=== PATIENT | female | born 2000 ===

== ENCOUNTER 2021-11-06 04:59 | Inpatient (IN) | payer SELFPAY ==
[2021-11-06] MEDS ORDERED: LACTATED RINGERS 500 ML IV ONE (05:45)
[2021-11-06 07:04] LABS: Basophils % (Auto) 0.3 % (0.0-1.8); Eosinophils # (Auto) 0.5 K/mm3 (0.0-0.4); Eosinophils % (Auto) 3.8 % (0.0-4.3); Hematocrit 34.3 % (30.3-42.9); Hemoglobin 11.4 gm/dl (10.1-14.3); Lymphocytes # (Auto) 2.4 K/mm3 (1.2-5.4); Lymphocytes % (Auto) 18.3 % (13.4-35.0); Mean Corpuscular HGB Conc 33 % (30-34); Mean Corpuscular Volume 89 fl (79-97); Monocytes % (Auto) 7.7 % (0.0-7.3); Platelet Count 230 K/mm3 (140-440); Red Blood Count 3.88 M/mm3 (3.65-5.03); Red Cell Distribution Width 13.6 % (13.2-15.2)
[2021-11-06 07:18] LABS: INR 0.96 (0.87-1.13)
[2021-11-06 07:19] LABS: Partial Thromboplastin Time 30.1 Sec. (24.2-36.6)
[2021-11-06 07:30] LABS: Hepatitis C Virus Antibody Non-Reactive (NonReactive)
[2021-11-06] MEDS ORDERED: LACTATED RINGERS 1,000 ML IV SCH (07:30)
[2021-11-06] MEDS ORDERED: OXYTOCIN DRIP 30 UNITS/500 ML BAG IV SCH ×2 (08:00→13:31)
[2021-11-06] MEDS ORDERED: BICITRA ORAL LIQD 30ML PO SCH (08:00)
[2021-11-06] MEDS ORDERED: METOCLOPRAMIDE 10 MG/2 ML INJ IV SCH (08:00)
[2021-11-06] MEDS ORDERED: FAMOTIDINE 20 MG/2 ML INJ IV SCH (08:00)
[2021-11-06] MEDS ORDERED: ceFAZolin/Water 2 GM/20 ML 2 GM/20 ML SYRINGE IV NR (08:00)
--- NOTE | 2021-11-06 08:04 | History and Physical Report ---
History of Present Illness Date of examination: 11/06/21 Chief complaint: vag bleeding History of present illness: at 24wks by pt report c/w U/S done today at [facility]. I was called by the nurs e stating pt with vag bleed. No records available. I requested emergent U/S for dates, placenta location and walk in labs and I arrived when u/s tech was walking out of the room. Pt gives history of being asleep and awaken by vag bleed at 4am today. Pt also admits after asking the FOB present in the room, that they had sex 10pm last night. Pt states no bleeding at that time. Pt admits to movement, denies headache, or feeling ctx. Past History Past Medical History: other (morbid obesity) Past Surgical History: no surgical history Social history: no significant social history - Obstetrical History Expected Date of Delivery: 02/26/22 Actual Gestation: 24 Week(s) 0 Day(s) : 1 Number of Living Children: 0 Medications and Allergies Allergies Allergy/AdvReac Type Severity Reaction Status Date / Time No Known Allergies Allergy Unverified 11/06/21 05:32 Active Meds: Active Medications Citric Acid/Sodium Citrate (Bicitra Oral Liqd 30ml) 30 ml PO PREOP ANIBAL Stop: 11/06/21 15:00 Famotidine (Famotidine 20 Mg/2 Ml Inj) 20 mg IV PREOP ANIBAL Stop: 11/06/21 15:00 Lactated Ringer's (Lactated Ringers) 1,000 mls @ 2,250 mls/hr IV PREOP ANIBAL Stop: 11/07/21 07:57 Oxytocin/Sodium Chloride (Pitocin/Ns 30 Unit/500ml) 30 units in 500 mls @ 0 mls/hr IV TITR ANIBAL; Protocol Cefazolin Sodium (Ancef/Sterile Water 2 Gm/20 Ml) 2 gm in 20 mls @ 80 mls/hr IV PREOP NR; Protocol Stop: 11/06/21 15:00 Metoclopramide HCl (Metoclopramide 10 Mg/2 Ml Inj) 10 mg IV PREOP ANIBAL Stop: 11/06/21 15:00 Review of Systems All systems: negative (vag bleed) - Vital Signs Vital signs: Vital Signs Pulse Ox 83 L 11/06/21 05:16 Temp Pulse Resp BP Pulse Ox 98.1 F 104 H 143/67 100 11/06/21 05:33 11/06/21 07:31 11/06/21 07:31 11/06/21 07:12 - Physical Exam Breasts: Positive: deferred Cardiovascular: Regular rate, Other (tacchycardia) Lungs: Positive: Normal air movement Genitourinary (Female): Positive: normal external genitalia (with dark moderate size clot and dark red blood persistent flow) Vulva: both: normal Vagina: Positive: discharge (bloody) Uterus: Positive: enlarged (non-tender, obese) - Obstetrical FHR: category 3 Uterine Contraction Monitor Mode: External Cervical Dilatation: 3 (large clot with no parts felt in the vagina) Uterine Contraction Pattern: Absent Results Result Diagrams: 11/06/21 06:20 Abnormal lab results 11/06/21 11/06/21 Range/Units 06:20 06:20 WBC 13.2 H (4.5-11.0) K/mm3 Moffat % (Auto) 7.7 H (0.0-7.3) % Moffat # (Auto) 1.0 H (0.0-0.8) K/mm3 Eos # (Auto) 0.5 H (0.0-0.4) K/mm3 Seg Neutrophils # 9.2 H (1.8-7.7) K/mm3 D-Dimer 340.94 H (0-234) ng/mlDDU All other labs normal. Assessment and Plan with active vag bleed, breech on u/s here and dates consistent with wt>500g with non-reassuring FHR and no fluid on u/s 1. Admit to labor and delivery for emergent c/section delayed per charge nurse Zena Ramos the Nurse motorcycle tester made the call for another pt with BPP 2 to go to the OR now; I called the dry house operator, Ana Cristina, to get staff to open the other OR and she stated "Where do you want me to get the staff from?". I received no help from her and therefore I spoke with Dr. Guillory the anesthesiologist on duty who states she has 2 nurse anesthetists and able to run 2 rooms. I spoke with NICU team next who states she has only 1 respiratory therapist and unable to run 2 rooms. My request to go first to surgery was denied. 2. The pt was prepared and consents obtained waiting to proceed 3. I tried to obtain prenatals and staff from [facility], pt is not ours. When I asked the pt, she states she went to [facility] , and FOB showed the Clinic name at [facility] which is not our patient. I confirmed with Vince my boss that [facility] does not cover this clinic. Dr. Mcduffie called and he refused to accept the patient and Dr. Austin now wire communications engineer accepts care of this patient and charge nurse Freitas present for this entire conversation. Charge told me I had to call admissions to change the attending doctor for which I did. Plan of care will now be assumed by Dr. Austin from [facility] as walk in coverage. 4. Nurse Ivis asked to get forms for the new wire communications engineer doctor to sign for the procedure. Charge nurse Zena states the NICU is still not available to proceed for delivery of this baby at this time. FHR 160's present with recurrent variables category II at this time. 5. Pt notified of change of plans, shaved with greenfield cath in place ready for the OR. All questions encouraged and answered
[2021-11-06] MEDS ORDERED: SODIUM CHLORIDE 0.9% 500 ML 500 ML IV SCH (09:00)
--- NOTE | 2021-11-06 09:04 | Event Note ---
Date: 11/06/21 Patient care transferred to magazine writer as previous provider has noted patient does not belong to her practice. Previous crisis intervention specialist doctor notified after shift change. Will take patient and proceed with section.
[2021-11-06] MEDS ORDERED: BUPIVACAINE/PF (0.5%) 5 MG/1 ML 30 ML VIAL INFILTRATI ONE (09:22)
[2021-11-06] MEDS ORDERED: ONDANSETRON 4 MG/2 ML INJ ONE (09:22)
[2021-11-06] MEDS ORDERED: ACETAMINOPHEN 325 MG TAB PO PRN ×2 (09:29→09:41)
[2021-11-06] MEDS ORDERED: BUTORPHANOL 2 MG/1 ML INJ IV PRN ×3 (09:29→09:41)
--- NOTE | 2021-11-06 09:30 | Ultrasound Report ---
ULTRASOUND OBSTETRIC LIMITED INDICATION / CLINICAL INFORMATION. labor and bleeding Clinical Gestational Age (GA) in weeks, days: 24 weeks 0 days TECHNIQUE: Transabdominal. COMPARISON: None available. FINDINGS: There is a single intrauterine in breech position. HEART RATE (beats per minute): 138 AMNIOTIC FLUID INDEX (cm) = not calculated (normal = 7-24 cm) PRESENTATION: Cephalic. Biparietal Diameter = 5.67 cm = 23, 2 weeks, days Head Circumference = 21.54 cm = 23, 4 weeks, days Abdominal Circumference = 19.40 cm = 24, 1 weeks, days Femur Length = 4.22 cm = 23, 5 weeks, days Average Ultrasound Age (AUA) = 23, 5 weeks, days Heart Rate: 138 beats per minute. Estimated Weight in grams (if calculated): 639 g Estimated Weight Growth Percentile (if calculated): 36 percentile Position: breech. Cervix: Not measured Placenta: anterior and free of the os. Grade 0. Amniotic Fluid Volume: normal Amniotic Fluid Index (MYCHAL) in cm (if calculated): Not calculated. Maternal Adnexa: No significant abnormality. IMPRESSION: 1. Single intrauterine in breech position. 2. Estimated weight is 639 g. 3. Estimated ultrasound age of 23 weeks 5 days. Signer Name: Ahmet Astorga MD Signed: 11/06/2021 9:26 AM Workstation Name: [id number]
[2021-11-06] MEDS ORDERED: NalbUPHINE 10 MG/1 ML INJ IV PRN ×2 (09:41→11:55)
[2021-11-06] MEDS ORDERED: SODIUM CHLORIDE 0.9% IRR 1,500 ML BOTTLE IR ONE (09:55)
[2021-11-06] MEDS ORDERED: WATER FOR IRRIG STERILE 1,500 ML BOTTLE IR ONE (09:55)
[2021-11-06] MEDS ORDERED: fentaNYL 100 MCG/2 ML INJ IV PRN (10:00)
[2021-11-06] MEDS ORDERED: PHENYLEPHRINE/NS 1,000 MCG/10 ML SYRINGE (OR USE) IV ONE (10:08)
[2021-11-06] MEDS ORDERED: ePHEDrine SULFATE 50 MG/1 ML INJ ONE (10:08)
[2021-11-06] MEDS ORDERED: CARBOPROST TROMETHAMINE 250 MCG/1 ML INJ IM ONE (10:16)
[2021-11-06] MEDS ORDERED: METHYLERGONOVINE MALEATE 0.2 MG/ML VIAL IM ONE (10:17)
[2021-11-06] MEDS ORDERED: fentaNYL 100 MCG/2 ML INJ ONE (10:52)
--- NOTE | 2021-11-06 11:47 | Anesthesia Day of Surgery ---
Anesthesia Day of Surgery - Day of Surgery Patient Examined: Yes Patient H&P Reviewed: Yes Patient is NPO: Yes Beta Blockers: No Cardiac Clearance: No Pulmonary Clearance: No Gino's Test: N/A
--- NOTE | 2021-11-06 11:48 | Anesthesia Consultation ---
Anesthesia Consult and Med Hx Date of service: 11/06/21 - Airway Anesthetic Teeth Evaluation: Good ROM Head & Neck: Adequate Mental/Hyoid Distance: Adequate Mallampati Class: Class II Intubation Access Assessment: Probably Good - Pulmonary Exam CTA: Yes - Cardiac Exam Cardiac Exam: RRR - Pre-Operative Health Status ASA Pre-Surgery Classification: ASA2, Emergency Proposed Anesthetic Plan: Spinal Nerve Block: TAP - Pulmonary Hx Smoking: No Hx Asthma: No Hx Sleep Apnea: No - Cardiovascular System Hx Hypertension: No Hx Heart Attack/AMI: No Hx Angina: No - Central Nervous System Hx Seizures: No Hx Psychiatric Problems: No - Gastrointestinal Hx Gastroesophageal Reflux Disease: No - Endocrine Hx Renal Disease: No Hx Liver Disease: No Hx Insulin Dependent Diabetes: No Hx Non-Insulin Dependent Diabetes: No Hx Hypothyroidism: No Hx Hyperthyroidism: No - Hematic Hx Anemia: No Hx Sickle Cell Disease: No - Other Systems Hx Alcohol Use: No
--- NOTE | 2021-11-06 11:49 | Progress Note ---
Spinal Anesthesia Block - Spinal Anesthesia Block Start Time: :34 Stop Time: :38 Performed by:: ROSENDO LESTER Procedure: Spinal anesthesia block is being performed for [c/s]. H&P, labs have been reviewed. Patient's questions and concerns have been answered. Informed consent has been performed. Timeout has was performed. Patient in sitting position on side of bed. Sterile prep and drape was performed. 3 mL 1% lidocaine skin wheal at L [3]-L [4]. Needle introducer advanced. 24-gauge spinal needle advanced, [+] CSF [-] blood. [Marcaine 10mg and Precedex 5mcg] Spinal dose was given. All needles removed. Patient tolerated procedure well.
--- NOTE | 2021-11-06 11:50 | Operative Report ---
Operative Report Operative Report: Preoperative diagnosis: IUP @ 24 weeks, PPROM, nonreassuring heart tones, vaginal bleeding Postoperative diagnosis: same, s/p section Procedure: classical section Surgeon: Li Austin MD Anesthesia: Spinal Complications: none EBL: 600 ml IV Fluids: 1500 ml UOP: 750 ml, clear urine at the end of procedure Indications: nonreassuring heart tones, PPROM, vaginal bleeding Findings: "en caul" in amniotic sac with no fluid, placenta attached Amniotic fluid None Fallopian tubes normal in appearance bilaterally Ovaries normal in appearance bilaterally Procedure: The patient was taken to the operating room where spinal anesthesia was found to be adequate. 2 g Ancef was given prior to the procedure. She was then prepared and draped in the usual sterile fashion in the dorsal supine position with a leftward tilt. A Pfannenstiel skin incision was made with the scalpel and carried through to the underlying layer of fascia with the bovie. The fascia was incised in the midline and the incision extended laterally. The superior aspect of the fascial incision was then grasped with the Francis's clamps, elevated, and the underlying rectu s muscles dissected off bluntly and with sharp dissection using bovie. Attention was then turned to the inferior aspect of this incision which, in a similar fashion, was grasped, tented up with the Francis clamps, and the rectus was dissected off bluntly and with sharp dissection. The rectus muscles were then in the midline, and the peritoneum identified, and entered bluntly. The peritoneal incision was then extended superiorly and inferiorly with good visualization of the bladder. The bladder blade was then inserted. A midline vertical incision was carried from the mid uterine corpus to above the level of the lower uterine segment until membranes noted. The incision site was opened wide enough to deliver . Fetus deliver en caul in amniotic sac with placenta attached. Sac open and fetus removed and movement noted. The umbilical cord was clamped and cut. The was handed off to the waiting pediatricians.The uterus was exteriorized and cleared of all clots and debris. The uterine incision was repaired with 0 vicryl in three layers: an initial layer at the deep myometrial edge, a second continuos layer to reapproximate the myometrium and a third continuos suture to closes the serosa. Areas of oozing noted at the incision line so an additional running suture placed. Hemostasis noted. Surgicel applied over the hysterotomy. Uterus returned to the abdomen. The rectus muscle was reapproximated with 2-0 vicryl. The fascia was reapproximated with 0 vicryl in a running fashion. Subcutaneous layer reapproximated with interrupted sutures of 3-0 vicryl. The skin was closed with 4-0 monocryl subcuticular stitch and the incision sealed with Steri-strips.The patient tolerated the procedure well. Sponge, lap, needle counts correct X 2. The patient was taken to the recovery room in a stable condition.
--- NOTE | 2021-11-06 11:50 | Progress Note ---
Regional Anesthesia Block - Regional Anesthesia Block Start Time: 11:38 Stop Time: 11:45 Performed By:: ROSENDO LESTER Procedure: Patient consented for TAP block for post surgical pain management. Patient identified, monitors placed, and time out performed. Mid axillary TAP identified bilaterally via ultrasound. Skin prepped bilaterally with [chlorhexidine] and [20g stimuplex] needle advanced to the TAP. 30ml [Marcaine 0.25% with 25mcg Pre cedex and Decadron 5mg] injected under ultrasound guidance on the [left] side. 30ml [Marcaine 0.25% with 25mcg Precedex and Decadron 5mg] injected under ultrasound guidance on the [right] side. Negative aspiration every 5mL, Patient tolerated the procedure well. No apparent complications seen.
--- NOTE | 2021-11-06 11:51 | Event Note ---
Date: 11/06/21 Late Entry: At approximately 8:45 AM the selling underwriter was approached by Dr. Villa regarding patient. I was informed patient did not belong to [facility] and previous walk-in provider for November 05, Dr Mcduffie, was called after change of shift and would not be taking the patient. Agreed to assume care of patient in order for patient to receive care. After assuming care, I was then informed by Dr. Villa the patient was noted to have vaginal bleeding and nonreassuring heart tones. Also breech presentation with no fluid noted on U/S, 3 cm dilated with clot at the os. Upon reviewing the chart, it was determined patient had arrived at approximately 5:[address] Villa placed orders and ordered a section at 6:46 AM., but was told she could not proceed due to staffing shortage. I presented to the patients bedside at approximately 9:00 AM for evaluation patient heart tones noted to have a 150 baseline with minimal to moderate variability and variable decelerations noted to 120 with recovery, perineum currently dry with scant blood stains on bedding. Patient without pain. Plan of care reviewed with patient who inquired when her surgery would begin. Bird Keeper informed patient we should be starting case as soon as the team (OR and NICU) is ready. Patient voiced understanding and new procedure consent form signed after again reviewing risk and benefits of the procedure. Also discussed with patient premature delivery as well as knee for classical . Reviewed that this is a vertical incision and she should never labor or have a vaginal delivery in the future. Patient voiced understanding period to the nurses station and chart review recommenced around 9:15 AM until approximately 9:30 AM when patient will to are at this time concrete mixing truck driver provider Dr Mcduffie presented to discuss the case and inquire if his help was needed. Informed provider that I had assumed care of patient. I had presented to the OR where the spinal was complete and patient being prepped. Case reviewed with CYLINDER HONER during this time. I scrubbed in the case and time out completed at 9:59 AM with incision made at 10:00 AM. delivered at 10:14 AM following delivery of , NICU team took over care and resuscitation of the . See their documentation for additional details. Case completed at approximately 11:20 AM. Prior to exiting to the operating room, spoke with patient who was tearful and asked about condition of baby. Discuss NICU team currently attempting resuscitative efforts and they would inform her of progress. Later informed by the food technology teacher that was . Follow up with patient at bedside in the PACU at approximately 12:30 PM for assessment of bleeding. Abdomen soft and non distended. Blood pressure reviewed and appropriate patient noted pain but overall feeling OK. Inquired when she would be allowed to eat. Will allow one son unit. Discussed that I am available for whatever she may need including emotional support. Patient voiced understanding. Informed nurse that the patient may be transferred to Mother/Baby after 15 minutes of additional monitoring.
[2021-11-06] MEDS ORDERED: ONDANSETRON 4 MG/2 ML INJ IV PRN (11:55)
[2021-11-06] MEDS ORDERED: NALOXONE 0.4 MG/1 ML INJ IV PRN ×2 (11:55→13:31)
[2021-11-06] MEDS ORDERED: HYDROmorphone 1 MG/1 ML INJ IV PRN (11:55)
[2021-11-06] MEDS ORDERED: PROMETHAZINE 25 MG RECT SUPP PR PRN ×2 (11:55→13:31)
[2021-11-06] MEDS ORDERED: diphenhydrAMINE 50 MG/ML VIAL IV PRN (11:55)
[2021-11-06] MEDS ORDERED: PROMETHAZINE 25 MG TAB PO PRN (11:55)
[2021-11-06] MEDS: ePHEDrine SULFATE 50 MG/1 ML INJ IV PRN ×2 (12:59→13:32)
[2021-11-06] MEDS: LACTATED RINGERS 1,000 ML IV SCH ×2 (13:00→18:50)
[2021-11-06] MEDS ORDERED: SIMETHICONE 80 MG CHEW TAB PO PRN (13:31)
[2021-11-06] MEDS ORDERED: WITCH HAZEL/ GLYCERIN PAD TP PRN (13:31)
[2021-11-06] MEDS ORDERED: MORPHINE 4 MG/1 ML INJ IV PRN (13:31)
[2021-11-06] MEDS ORDERED: SENNOSIDES 8.6 MG TAB PO PRN (13:31)
[2021-11-06] MEDS ORDERED: MAGNESIUM HYDROXIDE (MOM) ORAL LIQD UDC PO PRN (13:31)
[2021-11-06] MEDS ORDERED: IBUPROFEN 800 MG TAB PO PRN (13:31)
[2021-11-06] MEDS ORDERED: LANOLIN/ZINC/DIMETHICONE (LANSINOH) 7 GM TP PRN (13:31)
[2021-11-06] MEDS: KETOROLAC 30 MG/1 ML INJ IV PRN (15:17)
[2021-11-06] MEDS: FERROUS SULFATE 325 MG TAB PO SCH (15:23)
[2021-11-06] MEDS: PRENATAL VIT27-FE FUMARATE-FOLIC ACID VIT TAB PO SCH (15:24)
--- NOTE | 2021-11-06 17:34 | Post Anesthesia Evaluation ---
- Post Anesthesia Evaluation Patient Participated: Yes Airway Patent: Yes Stable Respiratory Function: Yes Nausea/Vomiting: No Temp > 96.8F: Yes Pain Manageable: Yes Adequeate Hydration: Yes Anesthesia Complications: No Block Receding Appropriately: Yes Patient on Ventilator: No
[2021-11-06 20:02] LABS: Bacteria,Urine 1+ /HPF (Negative); Bilirubin,Urine NEG (Negative); Blood,Urine SM (Negative); Color,Urine Straw (Yellow); Protein,Urine <15 mg/dL mg/dL (Negative); Urobilinogen,Urine < 2.0 mg/dL (<2.0)
[2021-11-07] MEDS: KETOROLAC 30 MG/1 ML INJ IV PRN (02:12)
[2021-11-07 05:13] LABS: Hematocrit 30.3 % (30.3-42.9); Hemoglobin 9.9 gm/dl (10.1-14.3)
[2021-11-07] MEDS: oxyCODONE /ACETAMINOPHEN 5-325MG TAB PO PRN ×2 (09:04→16:06)
[2021-11-07] MEDS: PRENATAL VIT27-FE FUMARATE-FOLIC ACID VIT TAB PO SCH ×2 (10:03)
[2021-11-07] MEDS: FERROUS SULFATE 325 MG TAB PO SCH ×2 (10:03)
[2021-11-07] MEDS: ONDANSETRON 4 MG/2 ML INJ IV PRN ×2 (10:03→21:21)
--- NOTE | 2021-11-07 10:23 | Progress Note ---
Assessment and Plan Routine postoperative care Incision C/D/I, previously reviewed wound care Regular diet ordered, patient to eat as tolerated Postop hemoglobin 9.9 Abdominal binder placed Patient encouraged to ambulate and move as much as possible Will continue to monitor - Patient Problems (1) Status post delivery Current Visit: Yes Status: Acute (2) Acute blood loss anemia Current Visit: Yes Status: Acute Subjective - Subjective Date of service: 11/07/21 Principal diagnosis: POD #1 s/p section Interval history: Patient complains of back pain due to lying down and along incision. Notes it is uncomfortable to move. Has voided several times over night and passed flatus. Has not yet had anything to eat this AM, but wants to try. Notes minimal vaginal bleeding. Patient reports: voiding normally, flatus, ambulating normally Objective - Vital Signs Latest vital signs: Vital Signs Temp Pulse Resp BP BP Pulse Ox Pulse Ox 11/07/21 07:23 98.2 F 92 H 22 110/49 97 11/07/21 05:02 98.0 F 80 18 101/51 95 11/07/21 02:12 18 11/07/21 00:05 97.9 F 91 H 18 98/41 96 11/06/21 21:11 98.2 F 99 H 18 107/47 97 11/06/21 17:29 93 H 98/62 11/06/21 14:43 97.6 F 89 18 117/54 97 11/06/21 14:33 97 11/06/21 12:35 84 19 108/54 100 11/06/21 12:20 103 H 14 99/47 100 11/06/21 12:05 88 18 104/54 99 11/06/21 11:50 89 18 119/61 100 11/06/21 11:45 98 H 11 L 117/55 100 11/06/21 11:40 82 19 111/37 100 11/06/21 11:35 98.0 F 107 H 12 132/54 100 Intake and Output 11/06/21 11/07/21 11/07/21 23:59 07:59 15:59 Intake Total 969.167 120 Output Total 2100 1200 Balance -1130.833 -1080 Intake: IV 729.167 Lactated Ringers 1,000 ml 729.167 @ 125 mls/hr IV DIRECT ANIBAL Rx#:[id number] Oral 240 120 Output: Urine 2100 1200 Indwelling Catheter 1900 Void 200 1200 Other: Total, Intake Amount 120 120 Total, Output Amount 200 600 - Exam Abdomen: Present: normal appearance, soft, tenderness, other (hypoactive bowel sounds) Uterus: Present: normal, firm Extremities: Present: normal Incision: Present: normal, dry, intact - Labs Labs: Abnormal lab results 11/06/21 11/07/21 Range/Units 18:26 04:53 Hgb 9.9 L (10.1-14.3) gm/dl Urine pH 8.0 H (5.0-7.0) Urine WBC (Auto) 26.0 H (0.0-6.0) /HPF
[2021-11-07] MEDS ORDERED: METOCLOPRAMIDE 10 MG/2 ML INJ IV PRN (12:00)
[2021-11-07] MEDS: IBUPROFEN 800 MG TAB PO SCH (21:19)
[2021-11-08] MEDS: IBUPROFEN 800 MG TAB PO SCH ×4 (05:10→23:38)
--- NOTE | 2021-11-08 08:37 | Progress Note ---
Assessment and Plan POC d/w pt. Postoperative pathway with ambulation, shower, and incentive spirometry encouraged. Pt verbalizes understanding. All questions and concerns addressed. Pt reports ambulating, voiding, and eating well. Able to tolerate soft diet yesterday. Plan to advance diet to regular. Anticipate discharge home tomorrow. - Patient Problems (1) Status post delivery Current Visit: Yes Status: Acute Subjective - Subjective Date of service: 11/08/21 Principal diagnosis: POD #2 s/p section Patient reports: appetite normal, voiding normally, pain well controlled, flatus, ambulating normally : Objective - Vital Signs Latest vital signs: Vital Signs Temp Pulse Resp BP BP Pulse Ox Pulse Ox 11/08/21 04:29 98.2 F 81 20 115/46 98 11/08/21 00:11 98.2 F 89 20 113/48 98 11/07/21 20:57 98.4 F 107 H 20 122/59 97 11/07/21 19:15 99 11/07/21 16:06 18 11/07/21 15:53 97.9 F 103 H 20 109/47 96 11/07/21 12:05 82 97 11/07/21 12:00 98.1 F 116 H 112/70 11/07/21 08:55 97 Intake and Output 11/07/21 11/08/21 11/08/21 23:59 07:59 15:59 Intake Total 340 240 Balance 340 240 Intake: Oral 340 Intake, Free Water 240 Other: Total, Intake Amount 120 # Voids Void 1 - Exam Breasts: Present: normal Lungs: Present: Normal air movement Abdomen: Present: normal appearance, soft. Absent: distention, tenderness, guarding Uterus: Present: normal, firm, fundal height below umbilicus Extremities: Present: normal Incision: Present: normal, dry, intact, other (steri-strips clean, dry, and intact) - Labs Labs: Abnormal lab results 11/06/21 Range/Units 06:20 Crossmatch See Detail
[2021-11-08] MEDS: FERROUS SULFATE 325 MG TAB PO SCH (10:03)
[2021-11-08] MEDS: LACTATED RINGERS 1,000 ML IV SCH (12:39)
[2021-11-08 14:16] LABS: Blood Urea Nitrogen 5 mg/dL (7-17)
--- NOTE | 2021-11-08 14:38 | Cat Scan Report ---
CT HEAD WITHOUT CONTRAST INDICATION / CLINICAL INFORMATION: c/o pressure in head. TECHNIQUE: Axial imaging performed from the skull apex through the skull base without the use of cont rast. Sagittal and coronal reformatted images. All CT scans at this location are performed using CT dose reduction for ALARA by means of automated exposure control. COMPARISON: None available. FINDINGS: CEREBRAL PARENCHYMA: No significant abnormality. No acute territorial infarct. HEMORRHAGE: None. EXTRA-AXIAL SPACES: Normal in size and morphology for the patient's age. VENTRICULAR SYSTEM: Normal in size and morphology for the patient's age. MIDLINE SHIFT OR HERNIATION: None. CEREBELLUM / BRAINSTEM: No significant abnormality. CALVARIUM: No significant abnormality. ORBITS: Normal as visualized. PARANASAL SINUSES / MASTOID AIR CELLS: There is mild mucosal thickening in the inferior maxillary sin uses, right greater than left. The remaining sinuses and mastoids are clear. SOFT TISSUES of HEAD: No significant abnormality. ADDITIONAL FINDINGS: None. IMPRESSION: No acute intracranial abnormality. Mild ethmoid sinus disease, likely chronic. Signer Name: Ranjith Alcocer Jr, MD Signed: 11/08/2021 2:33 PM Workstation Name: [id number]
[2021-11-08] MEDS: oxyCODONE /ACETAMINOPHEN 5-325MG TAB PO PRN (15:56)
--- NOTE | 2021-11-08 17:00 | Event Note ---
Date: 11/08/21 s/w Joselin RN- pt reports she feels "head pressure" felt this am was d/t her "hair being up in a ponytail". Pt reports no complaints since letting her hair down, and states, "I feel so much better". CT scan reviewed and acutely WNL. Dr. Allison made aware
[2021-11-09] MEDS: IBUPROFEN 800 MG TAB PO SCH ×2 (05:59→12:06)
--- NOTE | 2021-11-09 08:39 | Discharge Summary ---
Providers - Providers Date of Admission: 11/06/21 05:00 Date of discharge: 11/09/21 Attending physician: GERARD SHERWOOD MD 11/06/21 14:47 Consult to Case Management [CONS] Routine Services Needed at Discharge: Vitreo Retinal Surgeon Notified:: no Primary care physician: GERARD SHERWOOD MD Hospitalization Reason for admission: labor Condition: Good Pertinent studies: postop H&H 9.9/30.3 Procedures: primary c/s Hospital course: c/o and postop course complicated by premature delivery and demise Disposition: HOME / SELF CARE / HOMELESS Final Discharge Diagnosis (Prints w/discharge instructions): postop c/s Time spent for discharge: 30 - Discharge Diagnoses (1) Status post delivery Status: Acute Core Measure Documentation - Palliative Care Palliative Care/ Comfort Measures: Not Applicable - Core Measures Any of the following diagnoses?: none Exam - Constitutional Vitals: Temp Pulse Resp BP Pulse Ox 98.1 F 74 16 106/41 97 11/09/21 07:51 11/09/21 07:51 11/09/21 07:51 11/09/21 07:51 11/09/21 07:51 General appearance: Present: no acute distress, well-nourished - EENT Eyes: Present: PERRL ENT: hearing intact, clear oral mucosa - Neck Neck: Present: supple, normal ROM - Respiratory Respiratory effort: normal Respiratory: bilateral: CTA - Cardiovascular Rhythm: regular Heart Sounds: Absent: rub, click - Extremities Extremities: No edema Peripheral Pulses: within normal limits - Abdominal General gastrointestinal: Present: soft, non-tender, non-distended, normal bowel sounds Female genitourinary: Present: normal - Integumentary Integumentary: Present: clear, warm, dry - Musculoskeletal Musculoskeletal: gait normal, strength equal bilaterally - Psychiatric Psychiatric: appropriate mood/affect, intact judgment & insight - Neurologic Neurologic: CNII-XII intact, moves all extremities - Additional findings Additional findings: incision D&I w/ steristrips, lochia scant, fundus firm, VSSAF Plan Activity: advance as tolerated Diet: regular Wound: open to air, keep clean and dry Follow up with: GERARD SHERWOOD MD [Primary Care Provider] - 7 Days (Please call [phone] to schedule an incision check in 1 week. Call for any questions or concerns.) Prescriptions: Docusate Sodium [Colace] 100 mg PO BID #60 capsule Ferrous Sulfate [Feosol 325 MG tab] 325 mg PO QDAY #30 tablet Ibuprofen [Motrin 800 MG tab] 800 mg PO Q8HR #30 tablet oxyCODONE /ACETAMINOPHEN [Percocet 5/325] 1 tab PO Q6HR PRN #20 tablet PRN Reason: Pain Vit-Fe Fumar-FA [ Vitamin] 1 tab PO QDAY #30 tablet
[2021-11-09] MEDS: FERROUS SULFATE 325 MG TAB PO SCH (09:56)
[2021-11-09] MEDS: PRENATAL VIT27-FE FUMARATE-FOLIC ACID VIT TAB PO SCH (09:56)
--- NOTE | 2021-11-09 10:21 | Event Note ---
Date: 11/09/21 received call from nurse - pt c/o WILSON when sitting up but reports the pain is resolved when she lays down. Asked RN to call WE[employer]INEER to assess pt for possible spinal WILSON.
--- NOTE | 2021-11-09 11:02 | Progress Note ---
Subjective Date of service: 11/09/21 Principal diagnosis: POD #2 s/p section Interval history: Anesthesia consulted for possible PDPH. Cart reviewed. S/P SAB for csection without complications- 24g Spinal needle. Upon evaluation and questioning of the patient, she did not exhibit typical S&S of PDPH. I talked to patient at bedside, describes headache as a frontal pounding headache which is relieved by supine and fowlers positions. Also, relieved with pain medication. Denies nausea, vomiting, light sensitivity, neck stiffness. Her options for treatment were presented as conservative management vs Epidural Blood Patch. She preferred conservative treatment at this time after discussing risk/benefits and likelihood of improvement of symptoms from Epidural Blood Patch. Lilian saldana CNM was informed of findings. Objective - Constitutional Vitals: Vital Signs - 12hr 11/08/21 11/09/21 11/09/21 23:38 00:03 05:15 Temperature 98.1 F 97.5 F L Pulse Rate 74 69 Respiratory 20 18 18 Rate Blood Pressure 112/48 108/43 O2 Sat by Pulse 91 97 Oximetry O2 Sat by Pulse Oximetry [ Bilateral Throughout] 11/09/21 11/09/21 07:42 07:51 Temperature 98.1 F Pulse Rate 74 Respiratory 16 Rate Blood Pressure 106/41 O2 Sat by Pulse 97 Oximetry O2 Sat by Pulse 97 Oximetry [ Bilateral Throughout] - Labs CBC & Chem 7: 11/07/21 04:53 11/08/21 13:47 Labs: Abnormal lab results 11/06/21 11/08/21 Range/Units 06:20 13:47 BUN 5 L (7-17) mg/dL Creatinine 0.4 L (0.6-1.2) mg/dL Crossmatch See Detail
[2021-11-09] MEDS ORDERED: BUTALB/ACETAMINOPHEN/CAFFEINE TAB PO NR (11:16)
[2021-11-09 12:04] VITALS: BP 109/48
== END 2021-11-09 14:05 | disposition home or self-care (01) | DRG 787 ==
LOC: TRG 04:59 → LD 05:00 → APU 05:00 → LD 07:15 → TRG 09:38 → OB 14:36
PROVIDERS: ADMIT Student in an Organized Health Care Education/Training Program; ATTEND Student in an Organized Health Care Education/Training Program
PROC: 10D00Z1 Extraction of Products of Conception, Low, Open Approach (ICD-10-PCS; principal; 2021-11-06)
DX: O76 Abnormality in fetal heart rate and rhythm complicating labor and delivery (principal); D62 Acute posthemorrhagic anemia; Z3A.24 24 weeks gestation of pregnancy; Z37.0 Single live birth; O42.912 Preterm premature rupture of membranes, unspecified as to length of time between rupture and onset of labor, second trimester; O99.02 Anemia complicating childbirth; Z20.822 Contact with and (suspected) exposure to COVID-19
CPT/HCPCS: 36415; 70450; 76815; 76816; 81001; 82565; 84520; 85014; 85018; 85025; 85379; 85384; 85610; 85730; 86592; 86706; 86762; 86803; 86850; 86900; 86901; 86920; 87086; 87806; G0378; J3490; J7121; J1885; J2370; J2405; J2765; J3010; J7120; U0003

== ENCOUNTER 2021-12-06 09:33 | Emergency (ER) | payer SELFPAY ==
[2021-12-06 10:18] VITALS: BP 96/49
== END 2021-12-06 17:49 | disposition left against medical advice (07) ==
LOC: ED 09:33
DX: R10.9 Unspecified abdominal pain (principal); M54.2 Cervicalgia; Z53.21 Procedure and treatment not carried out due to patient leaving prior to being seen by health care provider